=== PATIENT | male | born 1955 | race Caucasian/White ===

== ENCOUNTER 2016-08-25 09:49 | Outpatient (CLI) | payer OTHER ==
[2016-08-25 12:36] LABS: Hemoglobin A1c 5.9 % (4.0-6.0)
[2016-08-25 13:36] LABS: Cardiac Risk 2.3 (Less than 4.5)
== END 2016-08-25 09:50 | disposition home or self-care (01) ==
LOC: NAVSJIPCSP 09:49
PROVIDERS: ATTEND Internal Medicine
DX: E78.5 Hyperlipidemia, unspecified (principal); E11.9 Type 2 diabetes mellitus without complications
CPT/HCPCS: 36415; 80061; 83036

== ENCOUNTER 2017-02-25 08:44 | Outpatient (CLI) | payer OTHER ==
[2017-02-25 12:35] LABS: Hemoglobin A1c 6.2 % (4.0-6.0)
[2017-02-25 13:08] LABS: Cardiac Risk 2.4 (Less than 4.5)
== END 2017-02-25 08:45 | disposition home or self-care (01) ==
LOC: NAVSJIPCSP 08:44
PROVIDERS: ATTEND Internal Medicine
DX: E11.9 Type 2 diabetes mellitus without complications (principal); E78.5 Hyperlipidemia, unspecified
CPT/HCPCS: 36415; 80061; 83036